=== PATIENT | male | born 1960 | race Caucasian/White ===

== ENCOUNTER → 2017-01-16 | Outpatient (CLI) | payer BC ==
--- NOTE | 2017-01-16 23:50 | PN ---
PROGRESS NOTE Solo is 56, and he is coming in for a compliancy check regarding COLLEEN treatment. The patient was diagnosed having severe COLLEEN with an AHI of 74, and he also had severe nocturnal oxygen desaturations. Based on that, he was a given a CPAP titration, and he was given an AutoCPAP unit with a minimum pressure of 10, maximum pressure of 16. On today's followup, the patient reports improvement with his sleep quality. His tells me that his sleep is very restful and he wakes up much more alert and awake during the day. Note that he had a sinus infection and he was unable to use it initially, for around a week, and after he recovered from his sinus infection he started using his CPAP unit. The compliancy that was collected over the past 30 days shows that the patient has used his machine around 20 out of the past 30 days. His CPAP use for more than 4 hours is ( ) 13. His average CPAP use is around 6.8 hours per night. His leak factor is 41 L/minute. His AHI while on treatment is down to 8.5. He is on a 30-minute RAMP, but these could be eliminated and cut down to a shorter RAMP time. He is currently using a Simplus full-face He has on and off leaking around the mask. His Hubbell score has dropped down to 8. PHYSICAL EXAMINATION: BP 164/88, pulse 65, respiration 16. Weight is 269. Temperature is 98.0. GENERAL APPEARANCE: Calm, comfortable. HEENT: Short neck. Crowding of the posterior pharynx. There is no goiter or neck mass. LUNGS: Diminished. Otherwise clear. Heart sounds are regular rate and rhythm. Normal S1, S2. Abdomen is soft, nontender. No organomegaly. EXTREMITIES: No edema. No cyanosis or clubbing. IMPRESSION: 1. Severe symptomatic obstructive sleep apnea with an AHI of 74, currently Auto CPAP with a minimum pressure 10, maximum pressure of 16, with adequate compliance and clinical response. There is some more improvement. 2. Severe nocturnal oxygen desaturation, improved with CPAP therapy. 3. Hypersomnia. Hubbell score dropped from 17 down to 8. 4. Morbid obesity. PLAN: 1. Encourage weight loss. 2. Continue CPAP at the same level of pressure. 3. We will try this patient on an AirFit F20 medium-sized full-face mask. 4. See me back in 30 to 90 days for a followup to make sure the compliance improves and the patient sees more clinical response. MMODL / IJN: [id number] /
== END ==
LOC: SLEEP 16:17
PROVIDERS: ATTEND Internal Medicine Critical Care Medicine
DX: G47.33 Obstructive sleep apnea (adult) (pediatric) (principal); G47.10 Hypersomnia, unspecified; E66.01 Morbid (severe) obesity due to excess calories

== ENCOUNTER 2018-03-04 12:15 | Inpatient (IN) | payer BC ==
[2018-03-04] MEDS ORDERED: SODIUM CHLORIDE 0.9% 500 ML 500 ML IV STA (12:34)
[2018-03-04] MEDS ORDERED: ASPIRIN 81 MG PO STA (12:34)
[2018-03-04] MEDS ORDERED: DILTIAZEM DRIP BOLUS FROM BAG 1 MG SOLN IV ONE (12:34)
--- NOTE | 2018-03-04 12:46 | ED ---
General Adult HPI - General Chief complaint: Chest Pain Stated complaint: Shortness of Breath Time Seen by Provider: 03/04/18 12:34 Source: patient, RN notes reviewed, old records reviewed Mode of arrival: wheelchair Limitations: no limitations - History of Present Illness Initial comments: 57-year-old female presenting for evaluation of dizziness and lightheadedness as well as some central chest pressure. Patient's symptoms began approximately one half hours prior to arrival. He had similar symptoms that lasted about 10- 15 minutes one week ago. Patient has no history of CAD. No history of A. fib or arrhythmia. No history DVT or PE. Patient denies chest pain at the time of my evaluation. He does have some mild dyspnea. No fever or chills. No preceding symptoms prior to one half hours ago. No vomiting no diarrhea. - Related Data Home Medications Medication Instructions Recorded Confirmed Meloxicam [Mobic] 15 mg PO DAILY 03/04/18 03/04/18 Allergies Allergy/AdvReac Type Severity Reaction Status Date / Time bee venom protein (honey bee) Allergy Anaphylaxis Verified 03/04/18 12:54 codeine AdvReac Nausea Verified 03/04/18 12:54 Review of Systems ROS Statement: Those systems with pertinent positive or pertinent negative responses have been documented in the HPI. ROS Other: All systems not noted in ROS Statement are negative. Past Medical History Additional Past Medical History / Comment(s): Arthitis History of Any Multi-Drug Resistant Organisms: None Reported Past Surgical History: Orthopedic Surgery Past Psychological History: No Psychological Hx Reported Smoking Status: Former smoker Past Alcohol Use History: Daily Past Drug Use History: None Reported General Exam Limitations: no limitations General appearance: alert, in no apparent distress Head exam: Present: atraumatic, normocephalic Eye exam: Present: normal appearance, PERRL ENT exam: Present: normal exam Neck exam: Present: normal inspection. Absent: tenderness, meningismus Respiratory exam: Present: normal lung sounds bilaterally. Absent: respiratory distress, wheezes Cardiovascular Exam: Present: tachycardia, irregular rhythm GI/Abdominal exam: Present: soft. Absent: distended, tenderness, guarding Extremities exam: Present: normal inspection, normal capillary refill. Absent: pedal edema Neurological exam: Present: alert, oriented X3, CN II-XII intact. Absent: motor sensory deficit Psychiatric exam: Present: normal affect, normal mood Skin exam: Present: warm, dry, intact. Absent: cyanosis, diaphoretic Course Vital Signs 03/04/18 03/04/18 03/04/18 12:19 12:35 12:40 Temperature 97.9 F Pulse Rate 45 L 176 H 160 H Respiratory 18 23 16 Rate Blood Pressure 123/77 136/96 136/96 O2 Sat by Pulse 97 96 Oximetry 03/04/18 03/04/18 03/04/18 12:50 13:00 13:02 Temperature Pulse Rate 168 H 71 70 Respiratory 19 16 16 Rate Blood Pressure 93/73 118/84 O2 Sat by Pulse 97 92 L 96 Oximetry 03/04/18 13:07 Temperature Pulse Rate Respiratory 20 Rate Blood Pressure O2 Sat by Pulse Oximetry EKG Findings - EKG Comments: EKG Findings:: EKG obtained at 1228, atrial fibrillation with RVR, rate of 197, QRS duration 96, QTC 445, there is ST segment depression in V5 and V6. No ST segment elevation. EKG obtained at 1336, normal sinus rhythm, ventricular rate is 78, TN interval 122, QRS duration 104, QTC 410, no ST segment elevation. Medical Decision Making - Medical Decision Making 57-year-old male presenting with chief complaint of dizziness, chest pressure, and dyspnea. Patient found to be in atrial fibrillation with RVR. Rate around 190-220. Blood pressure is stable, patient is loaded with Cardizem and started on Cardizem infusion. Left wrist studies reveal normal CBC, normal CMP, initial troponin is negative. Patient did express chest pain and pressure with this episode. There is concern for CAD. Patient is initiated on heparin for unstable angina and new onset A. fib. These continued on Cardizem. He'll be admitted for serial cardiac enzymes and cardiology consultation. Case discussed with Dr. Sierra who will admit patient. - Lab Data Result diagrams: 03/04/18 12:35 03/04/18 12:35 Lab Results 03/04/18 03/04/18 03/04/18 Range/Units 12:35 12:35 12:35 WBC 7.3 (3.8-10.6) k/uL RBC 5.07 (4.30-5.90) m/uL Hgb 15.2 (13.0-17.5) gm/dL Hct 45.7 (39.0-53.0) % MCV 90.3 (80.0-100.0) fL MCH 30.0 (25.0-35.0) pg MCHC 33.2 (31.0-37.0) g/dL RDW 13.1 (11.5-15.5) % Plt Count 205 (150-450) k/uL Neutrophils % 66 % Lymphocytes % 24 % Monocytes % 5 % Eosinophils % 2 % Basophils % 0 % Neutrophils # 4.8 (1.3-7.7) k/uL Lymphocytes # 1.8 (1.0-4.8) k/uL Monocytes # 0.4 (0-1.0) k/uL Eosinophils # 0.2 (0-0.7) k/uL Basophils # 0.0 (0-0.2) k/uL PT (9.0-12.0) sec INR (<1.2) APTT (22.0-30.0) sec Sodium 139 (137-145) mmol/L Potassium 4.0 (3.5-5.1) mmol/L Chloride 108 H (98-107) mmol/L Carbon Dioxide 23 (22-30) mmol/L Anion Gap 8 mmol/L BUN 21 H (9-20) mg/dL Creatinine 1.01 (0.66-1.25) mg/dL Est GFR (CKD-EPI)AfAm >90 (>60 ml/min/1.73 sqM) Est GFR (CKD-EPI)NonAf 84 (>60 ml/min/1.73 sqM) Glucose 161 H (74-99) mg/dL Calcium 9.7 (8.4-10.2) mg/dL Magnesium 2.0 (1.6-2.3) mg/dL Total Bilirubin 1.0 (0.2-1.3) mg/dL AST 27 (17-59) U/L ALT 45 (21-72) U/L Alkaline Phosphatase 49 (38-126) U/L Total Creatine Kinase 325 H (55-170) U/L CK-MB (CK-2) 3.7 H (0.0-2.4) ng/mL CK-MB (CK-2) Rel Index 1.1 Troponin I <0.012 (0.000-0.034) ng/mL Total Protein 6.9 (6.3-8.2) g/dL Albumin 4.0 (3.5-5.0) g/dL TSH 1.650 (0.465-4.680) mIU/L 03/04/18 Range/Units 12:35 WBC (3.8-10.6) k/uL RBC (4.30-5.90) m/uL Hgb (13.0-17.5) gm/dL Hct (39.0-53.0) % MCV (80.0-100.0) fL MCH (25.0-35.0) pg MCHC (31.0-37.0) g/dL RDW (11.5-15.5) % Plt Count (150-450) k/uL Neutrophils % % Lymphocytes % % Monocytes % % Eosinophils % % Basophils % % Neutrophils # (1.3-7.7) k/uL Lymphocytes # (1.0-4.8) k/uL Monocytes # (0-1.0) k/uL Eosinophils # (0-0.7) k/uL Basophils # (0-0.2) k/uL PT 10.5 (9.0-12.0) sec INR 1.1 (<1.2) APTT 24.3 (22.0-30.0) sec Sodium (137-145) mmol/L Potassium (3.5-5.1) mmol/L Chloride (98-107) mmol/L Carbon Dioxide (22-30) mmol/L Anion Gap mmol/L BUN (9-20) mg/dL Creatinine (0.66-1.25) mg/dL Est GFR (CKD-EPI)AfAm (>60 ml/min/1.73 sqM) Est GFR (CKD-EPI)NonAf (>60 ml/min/1.73 sqM) Glucose (74-99) mg/dL Calcium (8.4-10.2) mg/dL Magnesium (1.6-2.3) mg/dL Total Bilirubin (0.2-1.3) mg/dL AST (17-59) U/L ALT (21-72) U/L Alkaline Phosphatase (38-126) U/L Total Creatine Kinase (55-170) U/L CK-MB (CK-2) (0.0-2.4) ng/mL CK-MB (CK-2) Rel Index Troponin I (0.000-0.034) ng/mL Total Protein (6.3-8.2) g/dL Albumin (3.5-5.0) g/dL TSH (0.465-4.680) mIU/L Disposition Clinical Impression: Unstable angina pectoris, Atrial fibrillation with RVR Disposition: ADMITTED IP TO THIS HOSP Condition: Stable Is patient prescribed a controlled substance at d/c from ED?: No Referrals: Jair Sierra DO [Primary Care Provider] - 1-2 days Decision to Admit Reason: Admit from EC Decision Date: 03/04/18 Decision Time: 14:17
[2018-03-04] MEDS: DILTIAZEM 50 MG in SODIUM CHLORIDE 0.9% 40 ML IV SCH (12:54)
[2018-03-04 12:57] LABS: Basophils % (A) 0 %; Eosinophils # (A) 0.2 k/uL (0-0.7); Eosinophils % (A) 2 %; HCT 45.7 % (39.0-53.0); HGB 15.2 gm/dL (13.0-17.5); Lymphocytes # (A) 1.8 k/uL (1.0-4.8); Lymphocytes % (A) 24 %; MCHC 33.2 g/dL (31.0-37.0); MCV 90.3 fL (80.0-100.0); Mean Platelet Volume 7.6; Monocytes # (A) 0.4 k/uL (0-1.0); Monocytes % (A) 5 %; Neutrophils # (A) 4.8 k/uL (1.3-7.7); Neutrophils % (A) 66 %; Platelet Count 205 k/uL (150-450); RBC 5.07 m/uL (4.30-5.90); RDW 13.1 % (11.5-15.5); WBC 7.3 k/uL (3.8-10.6)
[2018-03-04 13:06] LABS: INR 1.1 (<1.2); Partial Thromboplastin Time 24.3 sec (22.0-30.0); Prothrombin Time 10.5 sec (9.0-12.0)
[2018-03-04 13:09] LABS: ALT 45 U/L (21-72); AST 27 U/L (17-59); Alkaline Phosphatase 49 U/L (38-126); Anion Gap 8 mmol/L; Blood Urea Nitrogen 21 mg/dL (9-20); Calcium 9.7 mg/dL (8.4-10.2); Carbon Dioxide 23 mmol/L (22-30); Chloride 108 mmol/L (98-107); Glucose 161 mg/dL (74-99); Sodium 139 mmol/L (137-145); Total Protein 6.9 g/dL (6.3-8.2)
[2018-03-04 13:18] LABS: Creatine Kinase 325 U/L (55-170)
[2018-03-04 13:30] LABS: Creatine Kinase MB 3.7 ng/mL (0.0-2.4); Troponin I <0.012 ng/mL (0.000-0.034)
--- NOTE | 2018-03-04 13:32 | XR ---
EXAMINATION TYPE: XR chest 1V portable DATE OF EXAM: 03/04/2018 Comparison: None Clinical History: 57-year-old male dysrhythmia Findings: Heart border line enlarged. Diffuse interstitial prominence. Strandy atelectasis at the left base. Pierre zy opacities within the peripheral and lower lungs related to overlying soft tissue. No giovanni consoli dation or significant pleural effusion seen. Impression: Borderline heart size. Chronic appearing changes. Limitations due to large body habitus and underpene tration. No definite acute process.
[2018-03-04] MEDS ORDERED: HEPARIN SODIUM,PORCINE 5,000 UNIT/ML 1 ML VIAL IV ONE (13:51)
[2018-03-04] MEDS ORDERED: NALOXONE 0.4 MG/ML 1 ML VIAL IV PRN (14:13)
[2018-03-04] MEDS ORDERED: ACETAMINOPHEN TAB 325 MG TAB PO PRN (14:13)
[2018-03-04] MEDS: HEPARIN SOD,PORK IN 0.45% NACL 25,000 UNIT in 0.45% NACL 1 500ML.BAG IV SCH (14:21)
[2018-03-04] MEDS ORDERED: INFLUENZA VACCINE (6 MOS+) 60 MCG/0.5 ML SYRINGE IM ONE (15:00)
[2018-03-04] MEDS: HEPARIN SODIUM,PORCINE 5,000 UNIT/ML 1 ML VIAL IV PRN (20:38)
[2018-03-04 20:53] LABS: Creatine Kinase MB 3.5 ng/mL (0.0-2.4)
[2018-03-04 21:11] LABS: Troponin I 0.163 ng/mL (0.000-0.034)
[2018-03-05] MEDS: DILTIAZEM 50 MG in SODIUM CHLORIDE 0.9% 40 ML IV SCH ×2 (00:09→09:52)
[2018-03-05] MEDS: HEPARIN SODIUM,PORCINE 5,000 UNIT/ML 1 ML VIAL IV PRN (02:07)
[2018-03-05 02:13] LABS: Troponin I 0.127 ng/mL (0.000-0.034)
[2018-03-05] MEDS: HEPARIN SOD,PORK IN 0.45% NACL 25,000 UNIT in 0.45% NACL 1 500ML.BAG IV SCH (06:26)
[2018-03-05 08:44] LABS: Basophils % (A) 1 %; Eosinophils # (A) 0.2 k/uL (0-0.7); Eosinophils % (A) 3 %; HCT 43.8 % (39.0-53.0); Lymphocytes # (A) 1.4 k/uL (1.0-4.8); Lymphocytes % (A) 22 %; MCHC 34.3 g/dL (31.0-37.0); MCV 90.5 fL (80.0-100.0); Mean Platelet Volume 8.1; Monocytes # (A) 0.4 k/uL (0-1.0); Monocytes % (A) 7 %; Neutrophils # (A) 4.3 k/uL (1.3-7.7); Neutrophils % (A) 65 %; Platelet Count 184 k/uL (150-450); RBC 4.84 m/uL (4.30-5.90); RDW 13.3 % (11.5-15.5); WBC 6.5 k/uL (3.8-10.6)
[2018-03-05 09:02] LABS: Anion Gap 7 mmol/L; Blood Urea Nitrogen 18 mg/dL (9-20); Calcium 9.5 mg/dL (8.4-10.2); Carbon Dioxide 25 mmol/L (22-30); Chloride 107 mmol/L (98-107); Glucose 118 mg/dL (74-99); Potassium 4.2 mmol/L (3.5-5.1); Sodium 139 mmol/L (137-145)
[2018-03-05] MEDS ORDERED: ALPRAZolam 0.5 MG TAB PO PRN (09:22)
[2018-03-05] MEDS ORDERED: NITROGLYCERIN SL TABS 0.4 MG TAB SUBLINGUAL PRN (09:22)
[2018-03-05] MEDS ORDERED: ATORVASTATIN 80 MG TAB PO STA (09:22)
[2018-03-05] MEDS ORDERED: ALPRAZolam 0.25 MG TAB PO PRN (09:22)
[2018-03-05] MEDS ORDERED: SODIUM CHLORIDE 0.9% 1,000 ML in EMPTY BAG 1 BAG IV ONE (09:22)
[2018-03-05] MEDS ORDERED: ASPIRIN 325 MG TAB PO STA (09:22)
--- NOTE | 2018-03-05 09:23 | P.CRDCN ---
History of Present Illness Consult date: 03/05/18 Requesting physician: Jair Sierra Consult reason: atrial fibrillation Chief complaint: Shortness of breath and chest tightness History of present illness: This is a 57-year-old gentleman with no prior documented history of hypertension, no diabetes, no hyperlipidemia, family history of CVA at an early age and some heart disease history in his family. Patient does not smoke, he does drink 6 or 7 alcoholic beverages every other day. He occasionally drinks energy drinks, has one cup of coffee per day. Patient presents to the hospital with symptoms of shortness of breath and chest tightness in his mid sternal area which started yesterday morning. He does state that approximately one to 2 months ago he had similar symptoms, however they subsided quickly on their own. This time the symptoms persisted and he came to the emergency room for further evaluation and treatment. EKG on arrival here showed atrial fibrillation with a rapid ventricular response. He was initiated on IV Cardizem drip and subsequently converted to normal sinus rhythm. CBC was normal , sodium 139, potassium 4.2, BUN 18, creatinine 0.8. Troponin 0.012, 0.16, 0.12. TSH level I.6. Magnesium 2.0. At the time of my examination this morning, patient feels well, denies any chest pain, no difficulty breathing, no palpitations. Past Medical History Past Medical History: GERD/Reflux, Osteoarthritis (OA), Pneumonia Additional Past Medical History / Comment(s): Arthritis multiple joints, COLLEEN with bipap History of Any Multi-Drug Resistant Organisms: None Reported Past Surgical History: Joint Replacement, Orthopedic Surgery Additional Past Surgical History / Comment(s): R knee meniscus repair, R rotator cuff repair, bilateral total hip arthroplasties. Past Anesthesia/Blood Transfusion Reactions: No Reported Reaction Smoking Status: Former smoker - Past Family History Father Family Medical History: CVA/TIA, Hypertension Additional Family Medical History / Comment(s): Father of a CVA at the age of 82 yrs. Mother Family Medical History: Cancer Additional Family Medical History / Comment(s): Mother of brain cancer at the age of 78yrs. Medications and Allergies Home Medications Medication Instructions Recorded Confirmed Type Meloxicam [Mobic] 15 mg PO DAILY 03/04/18 03/04/18 History Allergies Allergy/AdvReac Type Severity Reaction Status Date / Time bee venom protein (honey bee) Allergy Anaphylaxis Verified 03/04/18 12:54 codeine AdvReac Nausea Verified 03/04/18 12:54 Physical Exam Vitals: Vital Signs Temp Pulse Pulse Resp BP BP BP 03/05/18 08:00 98.1 F 61 16 137/87 03/05/18 04:00 98.1 F 61 17 119/74 03/04/18 23:40 67 17 03/04/18 23:37 67 17 120/68 03/04/18 20:00 98.2 F 62 17 129/91 03/04/18 19:30 61 19 116/73 03/04/18 19:00 62 17 127/92 03/04/18 18:30 62 18 92/73 03/04/18 18:00 62 18 92/60 03/04/18 17:30 69 14 122/88 03/04/18 17:00 62 20 110/79 03/04/18 16:30 121/84 03/04/18 16:00 58 L 18 113/70 03/04/18 15:30 63 21 112/72 03/04/18 15:00 64 20 112/85 03/04/18 14:30 65 18 112/76 03/04/18 14:00 70 22 108/72 03/04/18 13:30 73 19 122/76 03/04/18 13:07 20 03/04/18 13:02 70 16 118/84 03/04/18 13:00 71 16 93/73 03/04/18 12:50 168 H 19 03/04/18 12:40 160 H 16 136/96 03/04/18 12:35 176 H 23 136/96 03/04/18 12:19 97.9 F 45 L 18 123/77 Pulse Ox 03/05/18 08:00 96 03/05/18 04:00 95 03/04/18 23:40 03/04/18 23:37 95 03/04/18 20:00 97 03/04/18 19:30 03/04/18 19:00 96 03/04/18 18:30 97 03/04/18 18:00 96 03/04/18 17:30 96 03/04/18 17:00 96 03/04/18 16:30 03/04/18 16:00 96 03/04/18 15:30 03/04/18 15:00 97 03/04/18 14:30 95 03/04/18 14:00 95 03/04/18 13:30 95 03/04/18 13:07 03/04/18 13:02 96 03/04/18 13:00 92 L 03/04/18 12:50 97 03/04/18 12:40 96 03/04/18 12:35 03/04/18 12:19 97 Intake and Output 03/04/18 03/05/18 03/05/18 22:59 06:59 14:59 Intake Total 638.167 671.759 Balance 638.167 671.759 Intake: Intake, IV Titration 138.167 321.759 Amount Diltiazem 50 mg In Sodium 15.167 20.208 Chloride 0.9% 40 ml @ 5 MG/HR 5 mls/hr IV .Q10H [facility]LYS Rx#:[id number] Heparin Sod,Pork in 0.45% 123 301.551 NaCl 25,000 unit In 0.45 % NaCl 1 500ml.bag @ 8.32 UNITS/KG/HR 20 mls/hr IV .Q24H [facility]LYS Rx#:[id number] Oral 500 350 Other: Voiding Method Toilet Toilet # Voids 1 1 0 Weight 120.2 kg PHYSICAL EXAMINATION: GENERAL: 57-year-old gentleman in no acute distress at the time of my examination HEENT: Head is atraumatic, normocephalic. Pupils equal, round. Sclera anicteric. Conjunctiva are clear. Mucous membranes of the mouth are moist. Neck is supple. There is no elevated jugular venous pressure. No carotid bruit is heard. HEART EXAMINATION: Heart S1, S2 normal. No murmur or gallop heard. CHEST EXAMINATION: Lungs are clear to auscultation and precussion. No chest wall tenderness is noted on palpation or with deep breathing. ABDOMEN: Soft, nontender. Bowel sounds are heard. No organomegaly noted. EXTREMITIES: 2+ peripheral pulses with no evidence of peripheral edema and no calf tenderness noted. NEUROLOGIC patient is awake, alert and oriented X3. . Results 03/05/18 08:21 03/04/18 12:35 Cardiac Enzymes 03/04/18 03/04/18 03/04/18 Range/Units 12:35 12:35 20:04 AST 27 (17-59) U/L CK-MB (CK-2) 3.7 H 3.5 H (0.0-2.4) ng/mL Troponin I <0.012 0.163 H* (0.000-0.034) ng/mL 03/05/18 Range/Units 01:28 AST (17-59) U/L CK-MB (CK-2) 3.0 H (0.0-2.4) ng/mL Troponin I 0.127 H* (0.000-0.034) ng/mL Coagulation 03/04/18 03/04/18 03/05/18 Range/Units 12:35 20:04 01:28 PT 10.5 (9.0-12.0) sec APTT 24.3 30.8 H 38.4 H (22.0-30.0) sec 03/05/18 Range/Units 08:21 PT (9.0-12.0) sec APTT 47.9 H (22.0-30.0) sec CBC 03/04/18 03/05/18 Range/Units 12:35 08:21 WBC 7.3 6.5 (3.8-10.6) k/uL RBC 5.07 4.84 (4.30-5.90) m/uL Hgb 15.2 15.0 (13.0-17.5) gm/dL Hct 45.7 43.8 (39.0-53.0) % Plt Count 205 184 (150-450) k/uL Comprehensive Metabolic Panel 03/04/18 Range/Units 12:35 Sodium 139 (137-145) mmol/L Potassium 4.0 (3.5-5.1) mmol/L Chloride 108 H (98-107) mmol/L Carbon Dioxide 23 (22-30) mmol/L BUN 21 H (9-20) mg/dL Creatinine 1.01 (0.66-1.25) mg/dL Glucose 161 H (74-99) mg/dL Calcium 9.7 (8.4-10.2) mg/dL AST 27 (17-59) U/L ALT 45 (21-72) U/L Alkaline Phosphatase 49 (38-126) U/L Total Protein 6.9 (6.3-8.2) g/dL Albumin 4.0 (3.5-5.0) g/dL Current Medications Generic Name Dose Route Start Last Admin Trade Name Albina PRN Reason Stop Dose Admin Acetaminophen 650 mg 03/04/18 14:13 Tylenol Tab PO Q6HR PRN Mild Pain or Fever > 100.5 Heparin Sodium (Porcine) 0 unit 03/04/18 13:51 03/05/18 02:07 Heparin IV 4,000 unit PER PROTOCOL PRN Administration Low PTT Protocol Diltiazem HCl 50 mg/ Sodium 50 mls @ 5 mls/hr 03/04/18 13:00 03/05/18 00:09 Chloride IV Not Given .Q10H [facility] 5 MG/HR Heparin Sodium/Sodium Chloride 500 mls @ 20 mls/hr 03/04/18 14:00 03/05/18 06 :26 25,000 unit/ Sodium Chloride IV 14.3 units/kg/hr .Q24H [facility] 34.37 mls/hr Administration Protocol 8.32 UNITS/KG/HR Naloxone HCl 0.2 mg 03/04/18 14:13 Narcan IV Q2M PRN Opioid Reversal Intake and Output 03/04/18 03/05/18 03/05/18 22:59 06:59 14:59 Intake Total 638.167 671.759 Balance 638.167 671.759 Intake: Intake, IV Titration 138.167 321.759 Amount Diltiazem 50 mg In Sodium 15.167 20.208 Chloride 0.9% 40 ml @ 5 MG/HR 5 mls/hr IV .Q10H [facility] Rx#:[id number] Heparin Sod,Pork in 0.45% 123 301.551 NaCl 25,000 unit In 0.45 % NaCl 1 500ml.bag @ 8.32 UNITS/KG/HR 20 mls/hr IV .Q24H [facility] Rx#:[id number] Oral 500 350 Other: Voiding Method Toilet Toilet # Voids 1 1 0 Weight 120.2 kg 03/05/18 08:21 03/04/18 12:35 EKG Interpretations (text) EKG on arrival showed atrial fibrillation with rapid ventricular response. Subsequent EKG shows normal sinus rhythm with no acute changes. Assessment and Plan Plan: Assessment and plan #1 atrial fibrillation with rapid ventricular response, paroxysmal, patient currently in normal sinus rhythm. #2 EtOH use, patient states he drinks 6-7 alcoholic beverages every other day. #3 family history of premature coronary artery disease and CVA #4 no prior documented history of hypertension, no diabetes, no hyperlipidemia, however patient does not follow regularly with his primary care doctor. Plan We will obtain an echocardiogram with Doppler study. Patient has been advised to undergo cardiac catheterization, the risks and benefits were explained to him detail and he is willing to proceed. Further recommendations will be based on these findings and the patient's clinical course. DNP note has been reviewed, I agree with a documented findings and plan of care. Patient was seen and examined.
--- NOTE | 2018-03-05 10:46 | ECHOF ---
Referral Reason:afib MEASUREMENTS -------- HEIGHT: 172.7 cm WEIGHT: 119.7 kg BP: 137/87 RVIDd: 3.8 cm (< 3.3) IVSd: 1.1 cm (0.6 - 1.1) LVIDd: 5.8 cm (3.9 - 5.3) LVPWd: 1.1 cm (0.6 - 1.1) IVSs: 1.5 cm LVIDs: 3.5 cm LVPWs: 1.5 cm LAESV Index (A-L): 33.50 ml/m Ao Diam: 3.4 cm (2.0 - 3.7) AV Cusp: 2.4 cm (1.5 - 2.6) LA Diam: 3.9 cm (2.7 - 3.8) EPSS: 0.5 cm MV E Vince: 0.70 m/s MV DecT: 274 ms MV A Vince: 0.92 m/s MV E/A Ratio: 0.77 RAP: 5.00 mmHg RVSP: 37.13 mmHg MV EF SLOPE: 114.69 mm/s (70 - 150) MV EXCURSION: 1.96 cm (> 18.000) FINDINGS -------- Sinus rhythm. This was a technically adequate study. The left ventricular size is normal. There is borderline concentric left ventricular hypertrophy. Overall left ventricular systolic function is normal with, an EF between 55 - 60 %. The right ventricle is mildly enlarged. LA is midly dilated 29-33ml/m2. RA appears enlarged. Aortic valve is trileaflet and is mildly thickened. There is no evidence of aortic regurgitation. There is no evidence of aortic stenosis. The mitral valve leaflets are mildly thickened. There is trace to mild mitral regurgitation. Mild tricuspid regurgitation present. There is borderline pulmonary hypertension. Trace/mild (physiologic) pulmonic regurgitation. The aortic root size is normal. IVC Not well visulized. There is no pericardial effusion. CONCLUSIONS -------- 1. Sinus rhythm. 2. This was a technically adequate study. 3. The left ventricular size is normal. 4. There is borderline concentric left ventricular hypertrophy. 5. Overall left ventricular systolic function is normal with, an EF between 55 - 60 %. 6. The right ventricle is mildly enlarged. 7. LA is midly dilated 29-33ml/m2. 8. RA appears enlarged. 9. Aortic valve is trileaflet and is mildly thickened. 10. The mitral valve leaflets are mildly thickened. 11. There is trace to mild mitral regurgitation. 12. Mild tricuspid regurgitation present. 13. There is borderline pulmonary hypertension. 14. Trace/mild (physiologic) pulmonic regurgitation. 15. The aortic root size is normal. 16. IVC Not well visulized. 17. There is no pericardial effusion. PATENT ATTORNEY: Junior Gerardo RDCS
[2018-03-05] MEDS ORDERED: LORazepam 2 MG/ML INJ IV PRN ×3 (14:01)
--- NOTE | 2018-03-05 14:05 | P.HPIM ---
History of Present Illness H&P Date: 03/05/18 Chief Complaint: Shortness of breath and palpitations 57-year-old male who presented to the emergency room with a chief complaint of shortness of breath and feelings of his heart racing. The patient sees Dr. Sierra on an outpatient basis but it is noted the patient has not followed up in over a year at his office. The patient reports yesterday he began to feel short of breath suddenly. He states he rested for a little while but his symptoms did not get better so he came to the emergency room for further evaluation. The patient reports having an episode similar to this at work approximately 4-6 weeks ago but it subsided. EKG upon arrival to the emergency room revealed atrial fibrillation with rapid ventricular response with heart rate of 197. The patient was given IV Cardizem and did convert to sinus rhythm. He was started on a heparin drip. Chest x-ray revealed borderline heart size. Chronic appearing changes. No definite acute process. Laboratory data upon admission revealed white count 7.3. Hemoglobin 15.2. Platelet count 205. Sodium 139. Potassium 4.0. BUN 21. Creatinine 1.01. Glucose 161. Troponins 0.012, 0.163, 0.127. TSH 1.650. The patient was admitted to the hospital under the care of Dr. Sierra. Consultations were placed to cardiology. Review of Systems Those systems with pertinent positive or pertinent negative responses have been documented in the HPI Past Medical History Past Medical History: GERD/Reflux, Osteoarthritis (OA), Pneumonia Additional Past Medical History / Comment(s): Arthritis multiple joints, COLLEEN with bipap History of Any Multi-Drug Resistant Organisms: None Reported Past Surgical History: Joint Replacement, Orthopedic Surgery Additional Past Surgical History / Comment(s): R knee meniscus repair, R rotator cuff repair, bilateral total hip arthroplasties. Past Anesthesia/Blood Transfusion Reactions: No Reported Reaction Smoking Status: Former smoker - Past Family History Father Family Medical History: CVA/TIA, Hypertension Additional Family Medical History / Comment(s): Father of a CVA at the age of 82 yrs. Mother Family Medical History: Cancer Additional Family Medical History / Comment(s): Mother of brain cancer at the age of 78yrs. Medications and Allergies Home Medications Medication Instructions Recorded Confirmed Type Meloxicam [Mobic] 15 mg PO DAILY 03/04/18 03/04/18 History Allergies Allergy/AdvReac Type Severity Reaction Status Date / Time bee venom protein (honey bee) Allergy Anaphylaxis Verified 03/04/18 12:54 codeine AdvReac Nausea Verified 03/04/18 12:54 Physical Exam Vitals: Vital Signs Temp Pulse Pulse Resp BP BP BP 03/05/18 12:00 98.4 F 64 16 129/83 03/05/18 08:00 98.1 F 61 16 137/87 03/05/18 04:00 98.1 F 61 17 119/74 03/04/18 23:40 67 17 03/04/18 23:37 67 17 120/68 03/04/18 20:00 98.2 F 62 17 129/91 03/04/18 19:30 61 19 116/73 03/04/18 19:00 62 17 127/92 03/04/18 18:30 62 18 92/73 03/04/18 18:00 62 18 92/60 03/04/18 17:30 69 14 122/88 03/04/18 17:00 62 20 110/79 03/04/18 16:30 121/84 03/04/18 16:00 58 L 18 113/70 03/04/18 15:30 63 21 112/72 03/04/18 15:00 64 20 112/85 03/04/18 14:30 65 18 112/76 03/04/18 14:00 70 22 108/72 Pulse Ox 03/05/18 12:00 96 03/05/18 08:00 96 03/05/18 04:00 95 03/04/18 23:40 03/04/18 23:37 95 03/04/18 20:00 97 03/04/18 19:30 03/04/18 19:00 96 03/04/18 18:30 97 03/04/18 18:00 96 03/04/18 17:30 96 03/04/18 17:00 96 03/04/18 16:30 03/04/18 16:00 96 03/04/18 15:30 03/04/18 15:00 97 03/04/18 14:30 95 03/04/18 14:00 95 Intake and Output 03/04/18 03/05/18 03/05/18 22:59 06:59 14:59 Intake Total 638.167 671.759 99.673 Output Total 1600 Balance 638.167 671.759 -1500.327 Intake: Intake, IV Titration 138.167 321.759 99.673 Amount Diltiazem 50 mg In Sodium 15.167 20.208 Chloride 0.9% 40 ml @ 5 MG/HR 5 mls/hr IV .Q10H [facility] Rx#:[id number] Heparin Sod,Pork in 0.45% 123 301.551 99.673 NaCl 25,000 unit In 0.45 % NaCl 1 500ml.bag @ 8.32 UNITS/KG/HR 20 mls/hr IV .Q24H [facility] Rx#:[id number] Oral 500 350 Output: Urine 1600 Other: Voiding Method Toilet Toilet Toilet # Voids 1 1 0 Weight 120.2 kg GENERAL: This is a 57-year-old male in no apparent distress at the time of examination. Pleasant and cooperative. HEENT: Head is atraumatic, normocephalic. Pupils are equal, round, and reactive to light. Sclerae anicteric. Conjunctivae are clear. Mucus membranes of the mouth are moist. Neck is supple. RESPIRATORY: Clear to ausculation. No wheezes, rales, or rhonchi. No use of accessory muscles. Patient maintaining oxygen saturation greater than 92%. No chest wall tenderness is noted on palpation or with deep breathing. CARDIOVASCULAR: Regular rate and rhythm. S1 and S2 noted. No systolic or diastolic murmur auscultated. No JVD noted. No S3 or S4 noted. GASTROINTESTINAL: No distention noted. Abdomen soft and round. Normal active bowel sounds auscultated x 4 quadrants. No pain or tenderness noted upon palpation. INTEGUMENTARY: No cyanosis. No jaundice. No rashes noted. No cellulitis noted. EXTREMITIES: 2+ peripheral pulses. No evidence of peripheral edema. No calf tenderness noted. NEUROLOGIC: Cranial nerves II-XII intact. PSYCHIATRIC: Awake, alert, and oriented X 3. Appropriate affect. Intact judgement and insight. Results CBC & Chem 7: 03/05/18 08:21 03/05/18 08:21 Labs: Abnormal Lab Results - Last 24 Hours (Table) 03/04/18 03/04/18 03/05/18 Range/Units 20:04 20:04 01:28 APTT 30.8 H (22.0-30.0) sec Glucose (74-99) mg/dL Total Creatine Kinase 241 H 223 H (55-170) U/L CK-MB (CK-2) 3.5 H 3.0 H (0.0-2.4) ng/mL Troponin I 0.163 H* 0.127 H* (0.000-0.034) ng/mL 03/05/18 03/05/18 03/05/18 Range/Units 01:28 08:21 08:21 APTT 38.4 H 47.9 H (22.0-30.0) sec Glucose 118 H (74-99) mg/dL Total Creatine Kinase (55-170) U/L CK-MB (CK-2) (0.0-2.4) ng/mL Troponin I (0.000-0.034) ng/mL Thrombosis Risk Factor Assmnt - Choose All That Apply Any of the Below Risk Factors Present?: Yes Each Factor Represents 1 point: Age 41-60 years, Obesity (BMI >25) Other Risk Factors: No Other congenital or acquired thrombophilia - If yes, enter type in comment: No Thrombosis Risk Factor Assessment Total Risk Factor Score: 2 Thrombosis Risk Factor Assessment Level: Low Risk Assessment and Plan Plan: ASSESSMENT: New-onset atrial fibrillation with rapid ventricular response, converted to sinus mechanism with IV Cardizem Shortness of breath, secondary to above Daily alcohol use Morbid obesity: BMI 40.3 Elevated random glucose, blood sugar 161, rule out diabetes mellitus PLAN: Cardiology on consult. Appreciate recommendations and input Patient to undergo cardiac catheterization Obtain hemoglobin A1c to rule out diabetes CIWA scale Monitor labs GI prophylaxis: Pepcid 20 mg by mouth twice a day DVT prophylaxis: Patient currently on heparin drip Monitor vital signs and address as appropriate Discharge planning: Patient to return home when stable Further recommendations pending patient's course Nurse practitioner note has been reviewed by physician. Signing provider agrees with the documented findings, assessment, and plan of care.
[2018-03-05] MEDS ORDERED: IV FLUID CONTINUATION 1,000 ML IV ONE (14:19)
[2018-03-05] MEDS ORDERED: fentaNYL (PF) 50 MCG/ML 2 ML AMP IVP ONE (14:28)
[2018-03-05] MEDS ORDERED: LIDOCAINE 1% (PF) 10MG/ML VIAL SQ ONE (14:28)
[2018-03-05] MEDS ORDERED: VERAPAMIL SYRINGE (5 MG/10 ML) INTRAARTER ONE (14:30)
[2018-03-05] MEDS ORDERED: MIDAZOLAM 2 MG/2 ML VIAL IVP ONE (14:33)
[2018-03-05] MEDS ORDERED: IOPAMIDOL-370 125ML BTL INJ ONE (14:39)
[2018-03-05] MEDS ORDERED: RX INFO: IV CONTRAST WAS GIVEN 1 EACH MISC MISCELLANE PRN (14:49)
[2018-03-05] MEDS ORDERED: SODIUM CHLORIDE 0.9% 1,000 ML IV SCH (15:00)
--- NOTE | 2018-03-05 15:22 | CC ---
CARDIAC CATHETERIZATION REPORT Mr. Vides is a 57-year-old male with no prior documented coronary artery disease who presented with symptoms of chest discomfort and palpitation. He was in atrial fibrillation and subsequently converted back to sinus mechanism. His cardiac enzyme revealed mild abnormalities and because of that and his presentation, recommendation made regarding cardiac catheterization. The procedures, risks and complication were discussed with the patient, who is in full understanding and agreement. PROCEDURE: Patient was brought to cath lab technologist in a fasting semi-sedated state after receiving fentanyl and Benadryl and achieving moderate conscious sedated state. Using Xylocaine anesthesia and Seldinger technique, a 6-Faroese sheath was introduced in the right radial artery. Selective right and left coronary angiography was performed using 5- Faroese 3.5 bend right and left Gina catheter. Multiple views of the coronary artery including hemiaxial views were obtained. Following that, 6-Faroese pigtail catheter introduced in the left ventricle and a 30 degree KOWALSKI view of the left ventricle was obtained. Following that, catheter and sheaths were removed, hemostasis was obtained with deployment of a TR band. There was no immediate complication. Patient is returned to his room in stable condition. Of note, the patient received 5000 units of intravenous heparin as well as intra-arterial verapamil. FINDINGS: LEFT MAIN: This is a large-sized vessel, bifurcating into left circumflex, left anterior descending artery, left main coronary artery has no evidence of high-grade stenosis. LEFT ANTERIOR DESCENDING ARTERY: This is a large-sized vessel, reaching toward the apex with a wraparound apex segment, giving rise to small diagonal branch. The left anterior descending artery as well as branches have no evidence of obstructive disease. LEFT CIRCUMFLEX: This is a nondominant vessel, large in caliber giving rise to a large proximal obtuse marginal branch. The second obtuse marginal branch is small caliber. The left circumflex as well as branches have no evidence of obstructive coronary disease. RIGHT CORONARY ARTERY: This is a dominant vessel, bifurcating distally into PDA and posterolateral segment and branches. The right coronary artery and its branches have no evidence of obstructive coronary artery disease. LEFT VENTRICULOGRAM: Left ventriculogram is performed in 30 degree KOWALSKI view and revealed normal left ventricular size and systolic function. Ejection fraction is 60%. There was no significant mitral regurgitation. HEMODYNAMICS: There was no gradient across the aortic valve. The left ventricle end- diastolic pressure was 14-16 mmHg. CONCLUSION: 1. Normal coronary arteries. 2. Normal left ventricular size and systolic function. RECOMMENDATION: In view of finding anatomy, I recommend continue medical therapy with aggressive risk modifications being initiated. Those findings and recommendation were discussed with the patient and his family who are in full understanding and agreement. DURATION OF PROCEDURE: 18 minutes. MMLESLEY / ADINAN: [id number] /
--- NOTE | 2018-03-05 15:28 | LTR ---
DATE OF SERVICE: 03/05/2018 RE: Dionterupa Solo Dear Dr. Sierra; I had the pleasure to perform cardiac catheterization on Mr. Vides at [facility] and a full copy of the procedure note will be forwarded to you. In brief, he was found to have no evidence of obstructive coronary artery disease with a preserved ventricular size and systolic function and based on those findings, I recommend continue medical therapy with aggressive risk modification being initiated. Thank you again for allowing me to participate in this patient's care. Please feel free to call for any questions. Sincerely yours, MD ELBERT McguireL / ADINAN: [id number] /
[2018-03-05] MEDS ORDERED: THIAMINE 100 MG TAB PO SCH (17:00)
[2018-03-05 20:13] LABS: Hemoglobin A1C 5.6 % (4.0-6.0)
[2018-03-05] MEDS: FAMOTIDINE 20 MG TAB PO SCH (21:31)
[2018-03-05] MEDS: METOPROLOL TARTRATE 25 MG TAB PO SCH (21:31)
[2018-03-06 07:58] LABS: Basophils % (A) 0 %; Eosinophils # (A) 0.2 k/uL (0-0.7); Eosinophils % (A) 4 %; HCT 44.5 % (39.0-53.0); HGB 14.9 gm/dL (13.0-17.5); Lymphocytes % (A) 18 %; MCH 30.7 pg (25.0-35.0); MCHC 33.4 g/dL (31.0-37.0); Mean Platelet Volume 7.7; Monocytes # (A) 0.5 k/uL (0-1.0); Monocytes % (A) 8 %; Neutrophils % (A) 68 %; Platelet Count 169 k/uL (150-450); RBC 4.83 m/uL (4.30-5.90); RDW 13.2 % (11.5-15.5); WBC 5.8 k/uL (3.8-10.6)
[2018-03-06] MEDS: FAMOTIDINE 20 MG TAB PO SCH (08:08)
[2018-03-06] MEDS: METOPROLOL TARTRATE 25 MG TAB PO SCH (08:08)
[2018-03-06 08:20] VITALS: BP 121/74; PULSE 67; RESP 20; TEMP 97.6
[2018-03-06 08:28] LABS: Anion Gap 7 mmol/L; Blood Urea Nitrogen 15 mg/dL (9-20); Calcium 9.2 mg/dL (8.4-10.2); Carbon Dioxide 25 mmol/L (22-30); Chloride 107 mmol/L (98-107); Glucose 106 mg/dL (74-99); Potassium 4.2 mmol/L (3.5-5.1); Sodium 139 mmol/L (137-145)
[2018-03-06] MEDS ORDERED: ASPIRIN 81 MG PO SCH (09:00)
--- NOTE | 2018-03-06 09:44 | PN ---
PROGRESS NOTE Mr. Vides is a 57-year-old male who presented with paroxysmal fibrillation with mild chest discomfort and troponin elevation. Underwent cardiac catheterization yesterday, was found to have no evidence of significant obstructive coronary artery disease. He continues to be in sinus mechanism, ambulating without difficulty, denying any chest pain. No dizziness. No palpitation. Continues to be on aspirin once a day and metoprolol tartrate 25 mg twice a day. PHYSICAL EXAMINATION: Blood pressure 120/70 with a heart rate in the 60s. LUNGS: Clear. HEART: Regular rate and rhythm. S1, S2. No S3. No rub. ABDOMEN: Soft, nontender. EXTREMITIES: No edema, right radial pulse is intact. LAB DATA: Revealed BUN and creatinine 15 and 0.82. Potassium 4.2. Hemoglobin 14.9. IMPRESSION: 1. Paroxysmal atrial fibrillation. 2. Mild elevation of troponin, most likely related to the atrial fibrillation and rapid ventricular response. No evidence of obstructive coronary artery disease. RECOMMENDATION: From the cardiac standpoint, he should be able to be discharged home on the present therapy and followed as an outpatient. He will be allowed to return to work by Sunday. MMODL / IJN: [id number] /
--- NOTE | 2018-03-06 09:59 | P.DS ---
Providers Date of admission: 03/04/18 14:14 Expected date of discharge: 03/06/18 Attending physician: Jair Sierra Consults: 03/04/18 14:13 Consult Physician Routine Consulting Provider: Regino Dumont Consult Reason/Comments: New-onset A. fib with RVR, unstable angina Do you want consulting provider notified?: Yes Primary care physician: Jair Sierra [facility] Course: 57-year-old male who presented to the emergency room with a chief complaint of shortness of breath and feelings of his heart racing. The patient sees Dr. Sierra on an outpatient basis but it is noted the patient has not followed up in over a year at his office. The patient reports yesterday he began to feel short of breath suddenly. He states he rested for a little while but his symptoms did not get better so he came to the emergency room for further evaluation. The patient reports having an episode similar to this at work approximately 4-6 weeks ago but it subsided. EKG upon arrival to the emergency room revealed atrial fibrillation with rapid ventricular response with heart rate of 197. The patient was given IV Cardizem and did convert to sinus rhythm. He was started on a heparin drip. Chest x-ray revealed borderline heart size. Chronic appearing changes. No definite acute process. Laboratory data upon admission revealed white count 7.3. Hemoglobin 15.2. Platelet count 205. Sodium 139. Potassium 4.0. BUN 21. Creatinine 1.01. Glucose 161. Troponins 0.012, 0.163, 0.127. TSH 1.650. The patient was admitted to the hospital under the care of Dr. Sierra. Consultations were placed to cardiology. The patient underwent cardiac catherization and was found to have no evidence of obstructive coronary artery disease. He was started on aspirin and metoprolol per cardiology. Dr. Walker does not recommend anticoagulation at this time. The patient was deemed stable for discharge. Lifestyle modifications were discussed with the patient at length at the bedside DISCHARGE DIAGNOSIS: New-onset paroxysmal atrial fibrillation with rapid ventricular response, converted to sinus mechanism with IV Cardizem, status post cardiac catheterization revealing no evidence of obstructive coronary artery disease Shortness of breath, secondary to above Daily alcohol use Morbid obesity: BMI 40.3 Elevated random glucose, blood sugar 161, diabetes mellitus ruled out. hemoglobin A1C 5.6% Nurse practitioner note has been reviewed by physician. Signing provider agrees with the documented findings, assessment, and plan of care. Patient Condition at Discharge: Stable Plan - Discharge Summary Discharge Rx Participant: No New Discharge Prescriptions: New Aspirin 81 mg PO DAILY #30 chew Metoprolol Tartrate [Lopressor] 25 mg PO BID #60 tab Continue Meloxicam [Mobic] 15 mg PO DAILY Discharge Medication List Meloxicam [Mobic] 15 mg PO DAILY 03/04/18 [History] Aspirin 81 mg PO DAILY #30 chew 03/06/18 [Rx] Metoprolol Tartrate [Lopressor] 25 mg PO BID #60 tab 03/06/18 [Rx] Follow up Appointment(s)/Referral(s): Mireya Walker MD [STAFF PHYSICIAN] - 03/14/18 4:00 pm Jair Sierra DO [Primary Care Provider] - 03/15/18 11:40 am Patient Instructions/Handouts: A-fib (Atrial Fibrillation) (DC), Heart Healthy Diet (DC), After Radial Heart Catheterization (GEN) Discharge Disposition: HOME SELF-CARE
[2018-03-06] MEDS ORDERED: MULTIVITAMINS, THERA 1 EACH TAB PO SCH (12:00)
== END 2018-03-06 11:08 | disposition home or self-care (01) | DRG 287 ==
LOC: EC 12:15 → 3SCARD 14:14
PROVIDERS: ADMIT Family Medicine; ATTEND Family Medicine
PROC: 4A023N7 Measurement of Cardiac Sampling and Pressure, Left Heart, Percutaneous Approach (ICD-10-PCS; principal; 2018-03-04)
PROC: B2111ZZ Fluoroscopy of Multiple Coronary Arteries using Low Osmolar Contrast (ICD-10-PCS; 2018-03-04)
PROC: B2151ZZ Fluoroscopy of Left Heart using Low Osmolar Contrast (ICD-10-PCS; 2018-03-04)
DX: I48.0 Paroxysmal atrial fibrillation (principal); Z68.41 Body mass index [BMI] 40.0-44.9, adult; E66.01 Morbid (severe) obesity due to excess calories; G47.33 Obstructive sleep apnea (adult) (pediatric); K21.9 Gastro-esophageal reflux disease without esophagitis; Z79.1 Long term (current) use of non-steroidal anti-inflammatories (NSAID); Z80.8 Family history of malignant neoplasm of other organs or systems; Z82.3 Family history of stroke; Z82.49 Family history of ischemic heart disease and other diseases of the circulatory system; Z87.891 Personal history of nicotine dependence; Z96.643 Presence of artificial hip joint, bilateral; Z87.01 Personal history of pneumonia (recurrent); I25.10 Atherosclerotic heart disease of native coronary artery without angina pectoris; Z88.5 Allergy status to narcotic agent; Z91.030 Bee allergy status
CPT/HCPCS: 36415; 71045; 80048; 80053; 82550; 82553; 83036; 83735; 84443; 84484; 85025; 85610; 85730; 90686; 93005; 93306; 93458; 96365; 96366; 96368; 96376; 99285

== ENCOUNTER 2018-03-24 17:26 | Observation (INO) | payer BC ==
[2018-03-24] MEDS ORDERED: SODIUM CHLORIDE 0.9% 1,000 ML IV STA (17:33)
--- NOTE | 2018-03-24 17:33 | ED ---
Arrhythmia/Palpitations HPI - General Chief Complaint: Arrhythmia/Palpitations Stated Complaint: A - Fib Time Seen by Provider: 03/24/18 17:32 Source: patient, RN notes reviewed, old records reviewed Mode of arrival: ambulatory Limitations: no limitations - History of Present Illness Initial Comments: This is a 58-year-old male the ER for evaluation today of heart palpitations shortness of breath heart beating hard in his chest lightheadedness and dizziness. Patient states he has recent diagnosis of atrial fibrillation, recently started a new medications as is about 2-3 weeks ago. Since discharge he has been feeling fine at home yesterday had some palpitations and then today again he became worse with symptoms of lightheadedness shortness of breath and feeling like he might pass out. Patient's been taking all medications as prescribed, no recent illness, no current nausea vomiting or diarrhea. Patient denies drugs alcohol or smoking MD Complaint: rapid heart beat, "heart racing" -: hour(s) Context: occurred during rest Arrhythmia History: atrial fibrillation Associated Symptoms: shortness of breath, near-syncope, anxiety Treatments Prior to Arrival: beta-pili - Related Data Home Medications Medication Instructions Recorded Confirmed Meloxicam [Mobic] 15 mg PO DAILY 03/04/18 03/24/18 Previous Rx's Medication Instructions Recorded Aspirin 81 mg PO DAILY #30 chew 03/06/18 Metoprolol Tartrate [Lopressor] 25 mg PO BID #60 tab 03/06/18 Allergies Allergy/AdvReac Type Severity Reaction Status Date / Time bee venom protein (honey bee) Allergy Anaphylaxis Verified 03/24/18 18:44 codeine AdvReac Nausea Verified 03/24/18 18:44 Review of Systems ROS Statement: Those systems with pertinent positive or pertinent negative responses have been documented in the HPI. ROS Other: All systems not noted in ROS Statement are negative. Past Medical History Past Medical History: Atrial Fibrillation, GERD/Reflux, Osteoarthritis (OA), Pneumonia Additional Past Medical History / Comment(s): Arthritis multiple joints, COLLEEN with bipap History of Any Multi-Drug Resistant Organisms: None Reported Past Surgical History: Joint Replacement, Orthopedic Surgery Additional Past Surgical History / Comment(s): R knee meniscus repair, R rotator cuff repair, bilateral total hip arthroplasties. Past Anesthesia/Blood Transfusion Reactions: No Reported Reaction Past Psychological History: No Psychological Hx Reported Smoking Status: Former smoker Past Alcohol Use History: None Reported Past Drug Use History: None Reported - Past Family History Father Family Medical History: CVA/TIA, Hypertension Additional Family Medical History / Comment(s): Father of a CVA at the age of 82 yrs. Mother Family Medical History: Cancer Additional Family Medical History / Comment(s): Mother of brain cancer at the age of 78yrs. General Exam Limitations: no limitations General appearance: alert, in no apparent distress, anxious Head exam: Present: atraumatic, normocephalic, normal inspection Eye exam: Present: normal appearance, PERRL, EOMI. Absent: scleral icterus, conjunctival injection, periorbital swelling ENT exam: Present: normal exam, mucous membranes moist Neck exam: Present: normal inspection. Absent: tenderness, meningismus, lymphadenopathy Respiratory exam: Present: normal lung sounds bilaterally. Absent: respiratory distress, wheezes, rales, rhonchi, stridor Cardiovascular Exam: Present: tachycardia, irregular rhythm, normal heart sounds. Absent: systolic murmur, diastolic murmur, rubs, gallop, clicks GI/Abdominal exam: Present: soft, normal bowel sounds. Absent: distended, tenderness, guarding, rebound, rigid Extremities exam: Present: normal inspection, full ROM, normal capillary refill. Absent: tenderness, pedal edema, joint swelling, calf tenderness Back exam: Present: normal inspection Neurological exam: Present: alert, oriented X3, CN II-XII intact Psychiatric exam: Present: normal affect, normal mood Skin exam: Present: warm, dry, intact, normal color. Absent: rash Course Vital Signs 03/24/18 03/24/18 17:27 18:51 Temperature 98.2 F Pulse Rate 74 71 Respiratory 20 18 Rate Blood Pressure 170/84 129/85 O2 Sat by Pulse 98 93 L Oximetry - Reevaluation(s) Reevaluation #1: 03/24/18 19:05 On arrival to ER patient is in A. fib with RVR heart rate in the 180s, patient did convert spontaneously and has remained normal sinus rhythm in the 70s since. Patient's relatively symptomatically currently EKG Findings - EKG Comments: EKG Findings:: EKG shows NSR 73, [place] 134, QRS 02, QTc 381 Medical Decision Making - Medical Decision Making 58 male the ER for evasive palpitations near syncopal event, patient in A. fib with RVR, patient will be admitted for further evaluation management by cardiology Disposition Clinical Impression: Atrial fibrillation with RVR, Tachycardia Disposition: ADMITTED IP TO THIS HOSP Condition: Fair Is patient prescribed a controlled substance at d/c from ED?: No Referrals: Jair Sierra DO [Primary Care Provider] - 1-2 days
[2018-03-24 19:00] LABS: Basophils % (A) 1 %; Eosinophils # (A) 0.2 k/uL (0-0.7); Eosinophils % (A) 3 %; HCT 44.3 % (39.0-53.0); HGB 15.1 gm/dL (13.0-17.5); Lymphocytes # (A) 1.8 k/uL (1.0-4.8); Lymphocytes % (A) 26 %; MCH 31.1 pg (25.0-35.0); MCHC 34.2 g/dL (31.0-37.0); Mean Platelet Volume 7.6; Monocytes # (A) 0.5 k/uL (0-1.0); Monocytes % (A) 7 %; Neutrophils # (A) 4.3 k/uL (1.3-7.7); Neutrophils % (A) 61 %; Platelet Count 190 k/uL (150-450); RBC 4.87 m/uL (4.30-5.90); RDW 12.9 % (11.5-15.5)
[2018-03-24] MEDS ORDERED: ASPIRIN 81 MG PO STA (19:02)
[2018-03-24] MEDS ORDERED: NITROGLYCERIN SL TABS 0.4 MG TAB SUBLINGUAL PRN (19:02)
[2018-03-24 19:13] LABS: Partial Thromboplastin Time 23.2 sec (22.0-30.0); Prothrombin Time 9.8 sec (9.0-12.0)
[2018-03-24] MEDS ORDERED: SODIUM CHLORIDE 0.9% 1,000 ML IV SCH (19:15)
[2018-03-24 19:18] LABS: ALT 58 U/L (21-72); AST 28 U/L (17-59); Albumin 4.2 g/dL (3.5-5.0); Alkaline Phosphatase 49 U/L (38-126); Anion Gap 10 mmol/L; Blood Urea Nitrogen 22 mg/dL (9-20); Calcium 9.8 mg/dL (8.4-10.2); Carbon Dioxide 22 mmol/L (22-30); Chloride 107 mmol/L (98-107); Glucose 101 mg/dL (74-99); Magnesium 1.9 mg/dL (1.6-2.3); Phosphorus 3.9 mg/dL (2.5-4.5); Potassium 3.8 mmol/L (3.5-5.1); Sodium 139 mmol/L (137-145)
[2018-03-24 19:27] LABS: Creatine Kinase 285 U/L (55-170)
[2018-03-24 19:41] LABS: Troponin I <0.012 ng/mL (0.000-0.034)
--- NOTE | 2018-03-24 19:41 | XR ---
EXAMINATION TYPE: XR chest 2V DATE OF EXAM: 03/24/2018 COMPARISON: 03/04/2018 INDICATION: A. Fib, feeling dizzy TECHNIQUE: Frontal and lateral views of the chest are obtained. FINDINGS: The heart size is normal. The pulmonary vasculature is normal. The lungs are clear. No significant interval changes evident. IMPRESSION: 1. No acute pulmonary process.
[2018-03-24 20:45] VITALS: BMI 39.8
[2018-03-24] MEDS: METOPROLOL TARTRATE 50 MG TAB PO SCH (20:45)
[2018-03-24 21:13] LABS: Appearance,Urine Clear (Clear); Bilirubin,Urine Negative (Negative); Blood,Urine Negative (Negative); Color,Urine Light Yellow; Glucose,Urine (UA) Negative (Negative); Ketones,Urine Negative (Negative); Leukocyte Esterase,Urine Negative (Negative); Nitrite,Urine Negative (Negative); Protein,Urine Negative (Negative); Specific Gravity,Urine 1.012 (1.001-1.035); Urobilinogen,Urine <2.0 mg/dL (<2.0)
[2018-03-25 00:33] VITALS: TEMP 98.2
[2018-03-25 01:46] LABS: Creatine Kinase MB 1.6 ng/mL (0.0-2.4); Troponin I 0.019 ng/mL (0.000-0.034)
[2018-03-25 07:36] VITALS: BP 150/90; PULSE 54; RESP 17
[2018-03-25] MEDS: METOPROLOL TARTRATE 50 MG TAB PO SCH (08:41)
[2018-03-25] MEDS ORDERED: ASPIRIN 325 MG TAB PO SCH (09:00)
[2018-03-25] MEDS ORDERED: ASPIRIN 81 MG PO SCH (09:00)
[2018-03-25] MEDS ORDERED: METOPROLOL TARTRATE 25 MG TAB PO SCH (09:00)
--- NOTE | 2018-03-25 09:43 | P.DS ---
Providers Date of admission: 03/24/18 19:02 Expected date of discharge: 03/25/18 Attending physician: Jair Sierra Consults: 03/24/18 19:02 Consult Physician Urgent Consulting Provider: Mireya Walker Consult Reason/Comments: afib Do you want consulting provider notified?: Yes Primary care physician: Jair Sierra [facility] Course: This document serves as H&P and discharge summary 58-year-old male who presented to the emergency room with a chief complaint of palpitations and shortness of breath. The patient was admitted to the hospital approximately 3 weeks ago and diagnosed with new onset atrial fibrillation. He was discharged home on aspirin and metoprolol. The patient reports he was doing well since being discharged until yesterday when he began feeling his heart racing and some shortness of breath. He denied chest pain. Denied cough or congestion. Denied nausea or vomiting. Denied lightheadedness and dizziness. The patient presented to the emergency room and found to be in A. fib with RVR with a rate in the 180s. He converted spontaneously to sinus rhythm and has been maintaining sinus rhythm since that time. Chest xray was negative for acute process. He was evaluated by cardiology. He will receive an event monitor at the time of discharge. He was cleared for discharge home today with close outpatient follow up. DISCHARGE DIAGNOSIS: Atrial fibrillation with rapid ventricular response, converted to sinus mechanism spontaneously Paroxysmal atrial fibrillation Obesity: BMI 39.8 Nurse practitioner note has been reviewed by physician. Signing provider agrees with the documented findings, assessment, and plan of care. Patient Condition at Discharge: Stable Plan - Discharge Summary New Discharge Prescriptions: Continue Meloxicam [Mobic] 15 mg PO DAILY Aspirin 81 mg PO DAILY #30 chew Metoprolol Tartrate [Lopressor] 25 mg PO BID #60 tab Discharge Medication List Meloxicam [Mobic] 15 mg PO DAILY 03/04/18 [History] Aspirin 81 mg PO DAILY #30 chew 03/06/18 [Rx] Metoprolol Tartrate [Lopressor] 25 mg PO BID #60 tab 03/06/18 [Rx] Follow up Appointment(s)/Referral(s): Jair Sierra DO [Primary Care Provider] - 1 Week Mireya Walker MD [STAFF PHYSICIAN] - 1 Week Patient Instructions/Handouts: Low Fat Diet (DC), Heart Healthy Diet (DC) Activity/Diet/Wound Care/Special Instructions: Patient to receive event monitor at discharge per cardiology Discharge Disposition: HOME SELF-CARE
[2018-03-25 10:36] LABS: Creatine Kinase 188 U/L (55-170)
[2018-03-25 10:43] LABS: Creatine Kinase MB 1.6 ng/mL (0.0-2.4); Troponin I <0.012 ng/mL (0.000-0.034)
--- NOTE | 2018-03-25 11:25 | P.CRDCN ---
History of Present Illness History of present illness: This is a pleasant 58-year-old male past medical history significant for paroxysmal atrial fibrillation, gastroesophageal reflux disease, former nicotine dependence and recent daily alcohol use. He states he stopped drinking since being diagnosed with a-fib in February. He came to the hospital at that time with palpitations and chest pain. He was diagnosed with paroxysmal atrial fibrillation and underwent heart catheterization that revealed normal coronary arteries. During that hospitalization he converted to sinus mechanism. Yesterday while he was sitting down doing nothing he started feeling his heart begin beat fast. He states it felt very rapid and was causing him to feel dizzy. He denies chest pain, shortness of breath, nausea, vomiting or diaphoresis. The racing heart lasted approximately 20 minutes and subsided on its own while he was in the car heading to the hospital. Upon arrival he was in sinus mechanism with heart rate 73. He states while he was in ED his heart again started racing fast and lasted approximately 5-10 minutes per the , however there is no telemetry tracings captured at that time to review. He is seen and examined sitting up in bed in no acute distress. He denies any further palpitations overnight. Chest x-ray obtained negative for acute cardiopulmonary process. Laboratory data reviewed, cardiac enzymes negative 3, magnesium 1.9, sodium 3.8 , creatinine 0.85, WBC 7, hemoglobin 15.1, platelets 190. Current cardiac medications include metoprolol 25 mg twice a day and aspirin 81 mg daily. Echocardiogram obtained from previous admission reveals preserved left ventricular systolic function with ejection fraction 55-60%. At the time of my exam: CONSTITUTIONAL: Denies fever. Denies chills. EYES: Denies blurred vision. Denies vision changes. Denies eye pain. EARS, NOSE, MOUTH & THROAT: Denies headache. Denies sore throat. Denies ear pain. CARDIOVASCULAR: Denies chest pain. Denies shortness of breath. Denies orthopnea. Denies PND. Denies palpitations. RESPIRATORY: Denies cough. GASTROINTESTINAL: Denies abdominal pain. Denies diarrhea. Denies constipation. Denies nausea. Denies vomiting. MUSCULOSKELETAL: Denies myalgias. INTEGUMENTARY: Denies pruitis. Denies rash. NEUROLOGIC: Denies numbness. Denies tingling. Denies weakness. PSYCHIATRIC: Denies anxiety. Denies depression. ENDOCRINE: Denies fatigue. Denies weight change. Denies polydipsia. Denies polyurina. GENITOURINARY: Denies burning, hematuria or urgency with micturation. HEMATOLOGIC: Denies history of anemia. Denies bleeding. Blood pressure 150/90 heart rate 54 afebrile maintaining oxygen saturation on room air GENERAL: This is a 58-year-old male in no apparent distress at the time of my examination. Obese. HEENT: Head is atraumatic, normocephalic. Pupils are equal, round. Sclerae anicteric. Conjunctivae are clear. Mucous membranes of the mouth are moist. Neck is supple. There is no jugular venous distention. No carotid bruit is heard. LUNGS: Clear to auscultation no wheezes, rales or rhonchi. No chest wall tenderness is noted on palpation or with deep breathing. HEART: Regular rate and rhythm without murmurs, rubs or gallops. S1 and S2 heard. ABDOMEN: Soft, nontender. Bowel sounds are heard. No organomegaly noted. EXTREMITIES: No evidence of peripheral edema and no calf tenderness noted. VASCULAR: Radial and dorsalis pedis pulses palpated, no evidence of clubbing. NEUROLOGIC: Patient is awake, alert and oriented x3. ASSESSMENT Paroxysmal atrial fibrillation, according to [facility] anti-coagulation is no recommended Gastroesophageal reflux disease Dyslipidemia Obesity, BMI 39 History of daily alcohol use PLAN He has converted to sinus mechanism and all symptoms have resolved. Apply 7-day event monitor, report to Dr. Walker. He is stable from a cardiac perspective. Lengthy discussion had with him and his regarding lifestyle modifications for weight loss and lowering of cholesterol with diet and exercise. Complete alcohol cessation advised. Follow up with Dr. Walker upon discharge, he already has an appointment scheduled. Thank you kindly for this consultation. Nurse Practitioner note has been reviewed, I agree with a documented findings and plan of care. Patient was seen and examined. Past Medical History Past Medical History: Atrial Fibrillation, GERD/Reflux, Osteoarthritis (OA), Pneumonia Additional Past Medical History / Comment(s): Arthritis multiple joints, COLLEEN with bipap History of Any Multi-Drug Resistant Organisms: None Reported Past Surgical History: Heart Catheterization, Joint Replacement, Orthopedic Surgery Additional Past Surgical History / Comment(s): R knee meniscus repair, R rotator cuff repair, bilateral total hip arthroplasties. cardiac cath 2017 - clean Past Anesthesia/Blood Transfusion Reactions: No Reported Reaction Past Psychological History: No Psychological Hx Reported Additional Psychological History / Comment(s): Pt resides with his spouse. He is independent. 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 Smoking Status: Former smoker Past Alcohol Use History: None Reported Additional Past Alcohol Use History / Comment(s): Pt started smoking in 1977 and quit in 1996. He states he used to drink 5-6 beers every other day, but since his dx of afib in Feb 2018 he has not had any alcohol Past Drug Use History: None Reported - Past Family History Father Family Medical History: CVA/TIA, Hypertension Additional Family Medical History / Comment(s): Father of a CVA at the age of 82 yrs. Mother Family Medical History: Cancer Additional Family Medical History / Comment(s): Mother of brain cancer at the age of 78yrs. Medications and Allergies Home Medications Medication Instructions Recorded Confirmed Type Meloxicam [Mobic] 15 mg PO DAILY 03/04/18 03/24/18 History Aspirin 81 mg PO DAILY #30 chew 03/06/18 03/24/18 Rx Metoprolol Tartrate [Lopressor] 25 mg PO BID #60 tab 03/06/18 03/24/18 Rx Allergies Allergy/AdvReac Type Severity Reaction Status Date / Time bee venom protein (honey bee) Allergy Anaphylaxis Verified 03/24/18 18:44 codeine AdvReac Nausea Verified 03/24/18 18:44 Physical Exam Vitals: Vital Signs Temp Pulse Pulse Resp BP BP Pulse Ox 03/25/18 07:20 98.2 F 54 L 17 150/90 95 03/25/18 03:50 98.2 F 60 16 117/71 97 03/25/18 03:32 16 03/25/18 00:00 98.2 F 50 L 16 141/70 96 03/24/18 20:22 97.9 F 61 16 136/77 97 03/24/18 20:00 16 03/24/18 19:32 98.4 F 64 18 136/89 97 03/24/18 18:51 71 18 129/85 93 L 03/24/18 17:27 98.2 F 74 20 170/84 98 Intake and Output 03/24/18 03/25/18 03/25/18 22:59 06:59 14:59 Output Total 300 Balance -300 Output: Urine 300 Other: Voiding Method Toilet Toilet # Voids 2 Weight 122.4 kg Results 03/24/18 18:20 03/24/18 18:20 Cardiac Enzymes 03/24/18 03/24/18 03/25/18 Range/Units 18:20 18:20 00:29 AST 28 (17-59) U/L CK-MB (CK-2) 2.0 1.6 (0.0-2.4) ng/mL Troponin I <0.012 0.019 (0.000-0.034) ng/mL 03/25/18 Range/Units 09:27 AST (17-59) U/L CK-MB (CK-2) 1.6 (0.0-2.4) ng/mL Troponin I <0.012 (0.000-0.034) ng/mL Coagulation 03/24/18 Range/Units 18:20 PT 9.8 (9.0-12.0) sec APTT 23.2 (22.0-30.0) sec CBC 03/24/18 Range/Units 18:20 WBC 7.0 (3.8-10.6) k/uL RBC 4.87 (4.30-5.90) m/uL Hgb 15.1 (13.0-17.5) gm/dL Hct 44.3 (39.0-53.0) % Plt Count 190 (150-450) k/uL Comprehensive Metabolic Panel 03/24/18 Range/Units 18:20 Sodium 139 (137-145) mmol/L Potassium 3.8 (3.5-5.1) mmol/L Chloride 107 (98-107) mmol/L Carbon Dioxide 22 (22-30) mmol/L BUN 22 H (9-20) mg/dL Creatinine 0.85 (0.66-1.25) mg/dL Glucose 101 H (74-99) mg/dL Calcium 9.8 (8.4-10.2) mg/dL AST 28 (17-59) U/L ALT 58 (21-72) U/L Alkaline Phosphatase 49 (38-126) U/L Total Protein 7.0 (6.3-8.2) g/dL Albumin 4.2 (3.5-5.0) g/dL Current Medications Generic Name Dose Route Start Last Admin Trade Name Freq PRN Reason Stop Dose Admin Aspirin 81 mg 03/25/18 09:00 03/25/18 09:49 Aspirin PO Not Given DAILY [facility] Sodium Chloride 1,000 mls @ 100 mls/hr 03/24/18 19:15 Saline 0.9% IV .Q10H [facility] Metoprolol Tartrate 25 mg 03/25/18 09:00 03/25/18 09:49 Lopressor PO Not Given BID [facility] Nitroglycerin 0.4 mg 03/24/18 19:02 Nitrostat SUBLINGUAL Q5M PRN Chest Pain Intake and Output 03/24/18 03/25/18 03/25/18 22:59 06:59 14:59 Output Total 300 Balance -300 Output: Urine 300 Other: Voiding Method Toilet Toilet # Voids 2 Weight 122.4 kg 03/24/18 18:20 03/24/18 18:20
== END 2018-03-25 12:56 | disposition home or self-care (01) ==
LOC: EC 17:26 → 1SOBS 19:02
PROVIDERS: ADMIT Family Medicine; ATTEND Family Medicine
DX: I48.0 Paroxysmal atrial fibrillation (principal); R00.0 Tachycardia, unspecified; R00.8 Other abnormalities of heart beat; R55 Syncope and collapse; Z87.891 Personal history of nicotine dependence; E78.5 Hyperlipidemia, unspecified; G47.33 Obstructive sleep apnea (adult) (pediatric); Z99.89 Dependence on other enabling machines and devices; E66.9 Obesity, unspecified; Z68.39 Body mass index [BMI] 39.0-39.9, adult; Z82.3 Family history of stroke; Z82.49 Family history of ischemic heart disease and other diseases of the circulatory system; M19.90 Unspecified osteoarthritis, unspecified site; Z80.8 Family history of malignant neoplasm of other organs or systems; Z79.1 Long term (current) use of non-steroidal anti-inflammatories (NSAID); Z79.82 Long term (current) use of aspirin; Z79.899 Other long term (current) drug therapy; Z88.5 Allergy status to narcotic agent; Z91.030 Bee allergy status
CPT/HCPCS: 99285 ×2; 36415; 93005; 93270; 93271; 80053; 82550 ×2; 82553 ×2; 83605; 83735; 84100; 84484 ×2; 85025; 85610; 85730; 81003; 87086; 71046; G0378 ×2

== ENCOUNTER → 2018-04-26 | Day surgery (SDC) | payer BC ==
[2018-04-25 11:06] VITALS: BMI 39.8
[~2018-04-26] MED LIST: LACTATED RINGERS 1,000 ML IV SCH; LIDOCAINE 1% INJ 10MG/ML (20 ML MDV) ONE; PROPOFOL 10 MG/ML 20 ML VIAL IV ONE
[2018-04-26 08:44] VITALS: RESP 16; TEMP 98.4
--- NOTE | 2018-04-26 09:41 | P.PCN ---
Date of Procedure: 04/26/18 Procedure(s) Performed: BRIEF HISTORY: Patient is a 58-year-old pleasant male, scheduled for an elective colonoscopy as a part of screening for colorectal neoplasia. PROCEDURE PERFORMED: Colonoscopy with biopsy. PREOPERATIVE DIAGNOSIS: Screening for colon cancer. IV sedation per Anesthesia. PROCEDURE: After informed consent was obtained, the patient, was brought into the endoscopy unit. IV sedation was administered by Anesthesia under continuous monitoring. Digital rectal examination was normal. Initially the Olympus CF- 160 flexible video colonoscope was then inserted in the rectum, gradually advanced into the cecum without any difficulty. Careful examination was performed as the scope was gradually being withdrawn. Ileocecal valve and the appendiceal orifice were visualized and appeared normal. Prep was excellent. Mucosa of the cecum, ascending colon, transverse colon appeared normal. In the descending colon there was a 2-3 mm diminutive polyp removed by cold biopsy. Rest of the, descending colon, sigmoid colon, and rectum appeared normal. Retroflexion was performed in the rectum and no lesions were seen. The patient tolerated the procedure well. IMPRESSION: 2- 3 mm diminutive descending colon polyp status post removal by biopsy Rest of the colon appeared normal RECOMMENDATIONS: Findings of this examination were discussed with the patient as well as his family. He was advised to follow with the biopsy results and if the biopsy shows adenoma, he can have a repeat colonoscopy in 5 years.
[2018-04-26 10:09] VITALS: BP 122/78; PULSE 56
== END ==
LOC: ORWHC2ENDO 08:20
PROVIDERS: ATTEND Internal Medicine Gastroenterology
DX: Z12.11 Encounter for screening for malignant neoplasm of colon (principal); K63.5 Polyp of colon; K21.9 Gastro-esophageal reflux disease without esophagitis; I48.91 Unspecified atrial fibrillation; G47.33 Obstructive sleep apnea (adult) (pediatric); Z99.89 Dependence on other enabling machines and devices; Z87.891 Personal history of nicotine dependence; Z79.1 Long term (current) use of non-steroidal anti-inflammatories (NSAID); Z79.82 Long term (current) use of aspirin; Z79.899 Other long term (current) drug therapy; Z88.5 Allergy status to narcotic agent
CPT/HCPCS: 88305; 45380; J2001; J2704

== ENCOUNTER → 2023-12-21 | Outpatient (CLI) | payer BC ==
--- NOTE | 2024-01-28 09:34 | XR ---
EXAMINATION TYPE: XR lumbosacral spine min 4V DATE OF EXAM: 01/02/2024 8:58 AM CLINICAL INDICATION: Pain, postsurgical COMPARISON: None TECHNIQUE: XR lumbosacral spine min 4V - Frontal, lateral , bilateral oblique and coned in L5-S1 late ral views of the spine. FINDINGS: No evidence of any acute osseous pathology. No evidence of loss of vertebral body height i s seen. There is normal alignment of the lumbar vertebral bodies. Post surgical changes to the spine with fixation hardware at L4 and L5. Hardware appears intact. Discectomy at L5-S1 moderate multilevel degeneration changes with joint space narrowing osteophyte formation disc and facet joint arthropath y. Hip arthroplasties partially visualized. IMPRESSION: 1. No acute fracture. 2. Postsurgical changes with hardware intact.
== END | disposition home or self-care (01) ==
LOC: RADXRMAIN 13:40
PROVIDERS: ATTEND Family Medicine
DX: M96.0 Pseudarthrosis after fusion or arthrodesis (principal)
CPT/HCPCS: 72114

== ENCOUNTER → 2024-08-26 | Outpatient (CLI) | payer OTHER ==
[2024-08-26 15:04] LABS: ALT 33 U/L (10-49); AST 27 U/L (14-35); Albumin 3.9 g/dL (3.8-4.9); Albumin/Globulin Ratio 2.17 Ratio (1.60-3.17); Alkaline Phosphatase 55 U/L (41-126); BUN/Creat Ratio 17.89 Ratio (12.00-20.00); Blood Urea Nitrogen 16.1 mg/dL (9.0-27.0); Calcium 9.3 mg/dL (8.7-10.3); Carbon Dioxide 22.7 mmol/L (21.6-31.8); Chloride 107 mmol/L (96-109); Globulin 1.8 g/dL (1.6-3.3); Glucose 99 mg/dL (70-110); Potassium 4.1 mmol/L (3.5-5.5); Sodium 141 mmol/L (135-145); Total Bilirubin 0.9 mg/dL (0.3-1.2); Total Protein 5.7 g/dL (6.2-8.2)
== END | disposition home or self-care (01) ==
LOC: LABWHC1 11:03
PROVIDERS: ATTEND Internal Medicine Interventional Cardiology
DX: I48.3 Typical atrial flutter (principal)
CPT/HCPCS: 36415; 80053; 84443